=== PATIENT | female | born 1995 | race Caucasian/White ===

== ENCOUNTER → 2018-02-14 13:36 | Outpatient (CLI) | payer MEDICAID, SELFPAY ==
[2018-02-14 17:49] LABS: Chlamydia Trachomatis by PCR Negative (Negative); Neisserai gonorrhoeae by PCR Negative (Negative); Probe Check PASS; Sample Adequacy Control PASS; Specimen Processing Control PASS
== END ==
PROVIDERS: Visit Provider Obstetrics & Gynecology
DX: Z11.3 Encounter for screening for infections with a predominantly sexual mode of transmission (principal); Z34.81 Encounter for supervision of other normal pregnancy, first trimester
CPT/HCPCS: 87491; 87591

== ENCOUNTER 2018-02-26 15:34 | Emergency (ER) | payer MEDICAID, SELFPAY ==
[2018-02-26 15:34] VITALS: BP 126/74; PULSE 80; RESP 16; TEMP 36.4; O2SAT 98; BMI 25.4
--- NOTE | 2018-02-26 15:52 | ED.VISSUMM ---
- ER Visit Summary Date of Service: 02/26/18 Chief Complaint: Bug bites History of Present Illness: The patient is a 22 F presenting with bug bites. She states she slept at a friend's house last night and this morning woke up with bug bites to her right arm and left leg. She said her friend also had bite sheppard. She went to urgent care. She was put on Augmentin. They juarez a line around both areas of redness. She was advised to come to the ED if the redness extended beyond this line. She denies fever or other complaints. Physical Examination: Vitals are stable. Patient is afebrile. Alert no acute distress. HEENT exam is unremarkable. Neck is supple. Lungs are clear and equal bilaterally. Heart is regular rate and rhythm. Extremities bite with surrounding erythema right arm and left leg. No areas of fluctuance or crepitus. Erythema is not circumferential. NVID. Skin is warm and dry. No focal neurologic deficit. Remainder of exam is unremarkable. Emergency Department Course and Treatment: Redness is very slightly beyond the line drawn earlier today. Patient is given Unasyn IV. She is advised to continue her antibiotics as directed. She is given Dr. Freitas vocational placement specialist for no doc for follow-up. Advised return to ED for worsening complaints. Disposition: Discharge home Impression: Cellulitis right arm, left leg This note was generated with [employer] dictation software. It may contain incorrect words, spelling, and punctuation that were not noted in review of the chart prior to signing ED Disposition - Plan for ED Patient: Chief Complaint: Bite Instructions: ED Infec Skin Cellulitis Referrals: Guanaco Freitas MD [STAFF PHYSICIAN] -
--- NOTE | 2018-02-26 15:56 | ED.DCSUM_ITS ---
- ER Visit Summary Date of Service: 02/26/18 Chief Complaint: Bug bites History of Present Illness: The patient is a 22 F presenting with bug bites. She states she slept at a friend's house last night and this morning woke up with bug bites to her right arm and left leg. She said her friend also had bite sheppard. She went to urgent care. She was put on Augmentin. They juarez a line around both areas of redness. She was advised to come to the ED if the redness extended beyond this line. She denies fever or other complaints. Physical Examination: Vitals are stable. Patient is afebrile. Alert no acute distress. HEENT exam is unremarkable. Neck is supple. Lungs are clear and equal bilaterally. Heart is regular rate and rhythm. Extremities bite with surrounding erythema right arm and left leg. No areas of fluctuance or crepitus. Erythema is not circumferential. NVID. Skin is warm and dry. No focal neurologic deficit. Remainder of exam is unremarkable. Emergency Department Course and Treatment: Redness is very slightly beyond the line drawn earlier today. Patient is given Unasyn IV. She is advised to continue her antibiotics as directed. She is given Dr. Freitas construction manager for no doc for follow-up. Advised return to ED for worsening complaints. Disposition: Discharge home Impression: Cellulitis right arm, left leg This note was generated with [employer] dictation software. It may contain incorrect words, spelling, and punctuation that were not noted in review of the chart prior to signing ED Disposition - Plan for ED Patient: Chief Complaint: Bite Instructions: ED Infec Skin Cellulitis Referrals: Guanaco Freitas MD [STAFF PHYSICIAN] -
== END 2018-02-26 17:02 | disposition home or self-care (01) ==
LOC: ED 16:04
PROVIDERS: Emergency Provider Emergency Medicine
DX: L03.113 Cellulitis of right upper limb (principal); L03.116 Cellulitis of left lower limb; Z72.0 Tobacco use; Z79.899 Other long term (current) drug therapy
CPT/HCPCS: 96365; 99283; A4216; J0295

== ENCOUNTER → 2018-02-28 15:12 | Outpatient (CLI) | payer MEDICAID, SELFPAY ==
[2018-02-28 17:14] LABS: Absolute Lymphocyte Count 1.96 X10^3/ul (0.83-4.51); Absolute Neutrophil Count 4.4 X10^3/uL (2.0-7.7); Basophil# 0.02 X10^3/uL; Basophil% 0.3 % (0-1); Eosinophil# 0.18 X10^3/uL; Eosinophils% 2.5 % (0-5); Hematocrit 40.5 % (37-47); Hemoglobin 13.1 g/dl (12.0-15.0); Lymphocyte # 1.96 X10^3/ul (4.0); Lymphocyte % 27.5 % (19-41); Mean Corp Hgb Conc 32.3 g/gl (32-36); Mean Corpuscular Hgb 26.5 pg (27.0-32.0); Mean Corpuscular Volume 81.8 fL (81-99); Mean Platelet Vol. 9.2 fl (6.2-12.0); Monocyte% 8.4 % (0-10); Neutrophil # 4.35 X10^3/uL (2.7-7.7); Neutrophil % 61.2 % (47-70); Platelet Count 292 K/mm3 (150-450); RBC Distribution Width CV 17.5 % (11.6-14.6); RBC Distribution Width SD 52.7 fl (35.1-43.9); Red Blood Count 4.95 M/mm3 (4.2-5.4); White Blood Count 7.1 K/mm3 (4.4-11.0)
[2018-02-28 17:15] LABS: POSITIVE COUNT NO; POSITIVE DIFFERENTIAL NO; POSITIVE MORPHOLOGY NO
[2018-02-28 17:25] LABS: COTININE Drug Screen Positive (<200 ng/mL)
[2018-02-28 17:33] LABS: Color, Urine Yellow (Yellow); Glucose, Dipstick Normal (Normal); Ketone-Dipstick 5 mg/dl (Negative); Leukocyte Esterase-Dipstick 25 /ul (Negative); Nitrite-Dipstick Negative (Negative); Occult Blood-Urine Negative /ul (Negative); Protein-Dipstick Negative (Negative); Specific Gravity, Urine 1.015 (1.002-1.030); Urine Bilirubin Dipstick Negative (Negative); Urine Clarity Sl. Cloudy (Clear); Urine Urobilinogen Normal (Normal)
[2018-02-28 17:42] LABS: Amphetamine Urine VISTA NEGATIVE (<1000 ng/mL); Barbiturate Urine VISTA NEGATIVE (< 200 ng/mL); Benzodiazepine Urine VISTA NEGATIVE (< 200 ng/mL); Cocaine Urine VISTA NEGATIVE (< 300 ng/mL); Ecstacy Urine VISTA NEGATIVE (< 500 ng/mL); Methadone Urine VISTA NEGATIVE (< 300 ng/mL); PCP Urine VISTA NEGATIVE (< 25 ng/mL); THC Urine VISTA POSITIVE (< 50 ng/mL); Vista UDS pH Range 7
[2018-02-28 18:06] LABS: Thyroid Stim Hormone (TSH) 0.11 uIU/mL (0.358-3.74)
[2018-02-28 18:47] LABS: HIV - WCH Non-Reactive (Nonreactive); Rubella IgG 240.3 IU/mL
[2018-03-01 15:03] LABS: Free T3 4.4 pg/mL (2.18-3.98); T4 Free Direct 1.28 ng/dL (0.76-1.46)
[2018-03-03 05:43] LABS: Prenatal RPR NONREACTIVE (NONREACTIVE)
[2018-03-03 13:41] LABS: HEPATITIS B SURFACE AG Negative (Negative); Hep C Antibodies 0.2 s/co ratio (0.0-0.9); V-Zoster IgG (Immunity) 2305 index (Immune >165)
== END ==
PROVIDERS: Visit Provider Obstetrics & Gynecology
DX: Z34.81 Encounter for supervision of other normal pregnancy, first trimester (principal)
CPT/HCPCS: 80307; 81002; 84439; 84443; 84481; 85025; 86703; 86762; 86787; 86803; 87340

== ENCOUNTER 2018-03-19 22:08 | Emergency (ER) | payer MEDICAID, SELFPAY ==
[2018-03-19 22:09] VITALS: BP 134/67; PULSE 95; RESP 15; TEMP 36.6; O2SAT 99; BMI 29.0
[2018-03-19] MEDS: Cephalexin 250 MG Capsule 500 MG PO (22:54)
[2018-03-19 22:55] VITALS: BP 134/67; PULSE 95; RESP 15; O2SAT 99
--- NOTE | 2018-03-19 22:55 | ED.DCSUM_ITS ---
- ER Visit Summary Date of Service: 03/19/18 Chief Complaint: Rash History of Present Illness: The patient is a 22 F presenting for evaluation secondary to a rash. Patient reports that she developed a rash on her left forearm that started over the course last 24 hours. She reports that it has been spreading, it is mildly painful, cavazos, itches, and she now noticed some streaking going up her forearm. She denies any constitutional symptoms such as fevers. Patient reports that she has had prior similar episodes in the past when she spends the night at a friend's house and states that the rashes have required antibiotics. She denies any history of IV drug use. She believes that this is from bug bites patient is 12 weeks and . Physical Examination: Patient is afebrile and nontoxic-appearing. Examination of patient's upper extremity shows a area of erythema over the patient's forearm that measures approximately 8-10 cm and is minimally indurated and there is no evidence of fluctuance. There is the potential for a couple areas where there might be some small bite wounds but this really is not obvious. There is lymphangitic streaking going to approximately 6 cm distal to the patient's elbow. No palpable epitrochlear nodes. Test Results: None indicated Emergency Department Course and Treatment: Patient presented for evaluation secondary to a rash. Patient's rash has evidence of lymphangitic streaking and seems consistent with an infection. Patient will be placed on a course of Keflex. She was given signs and symptoms for which to return, she voiced understanding in her own terms. Patient was given a first dose in the emergency department and was discharged. Disposition: Discharge Impression: 1. Left forearm cellulitis This note was generated with [employer] dictation software. It may contain incorrect words, spelling, and punctuation that were not noted in review of the chart prior to signing ED Disposition - Plan for ED Patient: Disposition: Home or Assisted Living Chief Complaint: Cellulitis Diagnosis: Cellulitis Instructions: ED Infec Skin Cellulitis Prescriptions: Cephalexin [Keflex] 500 mg PO Q6 #40 cap Referrals: Delbert Raza MD [STAFF PHYSICIAN] - As Needed
== END 2018-03-19 23:04 | disposition home or self-care (01) ==
PROVIDERS: Emergency Provider Emergency Medicine
DX: O98.811 Other maternal infectious and parasitic diseases complicating pregnancy, first trimester (principal); L03.114 Cellulitis of left upper limb; O99.331 Smoking (tobacco) complicating pregnancy, first trimester; Z3A.12 12 weeks gestation of pregnancy
CPT/HCPCS: 99283

== ENCOUNTER → 2018-03-28 09:25 | Outpatient (CLI) | payer MEDICAID, SELFPAY ==
[2018-03-28 10:46] LABS: Free T3 2.9 pg/mL (2.18-3.98); T4 Free Direct 0.99 ng/dL (0.76-1.46); Thyroid Stim Hormone (TSH) 0.47 uIU/mL (0.358-3.74)
== END ==
PROVIDERS: Visit Provider Obstetrics & Gynecology
DX: O99.282 Endocrine, nutritional and metabolic diseases complicating pregnancy, second trimester (principal); R94.6 Abnormal results of thyroid function studies; Z3A.00 Weeks of gestation of pregnancy not specified
CPT/HCPCS: 36415; 84439; 84443; 84481

== ENCOUNTER → 2018-07-11 12:58 | Outpatient (CLI) | payer MEDICAID, SELFPAY ==
[2018-07-11 13:48] LABS: Hematocrit 35.2 % (37-47); Hemoglobin 11.8 g/dl (12.0-15.0); Mean Corp Hgb Conc 33.5 g/gl (32-36); Mean Corpuscular Volume 92.4 fL (81-99); Mean Platelet Vol. 9.3 fl (6.2-12.0); Platelet Count 243 K/mm3 (150-450); RBC Distribution Width SD 43.6 fl (35.1-43.9); Red Blood Count 3.81 M/mm3 (4.2-5.4); Scan Indicated on CBC? Y/N NO
[2018-07-11 13:55] LABS: Glucose Challenge Gest 1H 50g 110 mg/dL (70-140)
== END ==
PROVIDERS: Visit Provider Obstetrics & Gynecology
DX: Z34.83 Encounter for supervision of other normal pregnancy, third trimester (principal)
CPT/HCPCS: 36415; 82950; 85027

== ENCOUNTER → 2018-08-31 13:08 | Outpatient (CLI) | payer MEDICAID, SELFPAY | PROVIDERS: Visit Provider Obstetrics & Gynecology | DX: Z36.85 Encounter for antenatal screening for Streptococcus B (principal) | CPT/HCPCS: 87077; 87081; 87186 ==

== ENCOUNTER 2018-09-16 21:25 | Outpatient (CLI) | payer MEDICAID, SELFPAY ==
[2018-09-16 22:08] VITALS: BMI 34.2
[2018-09-16 22:31] LABS: Mucous, Urine 0 SEEN /hpf (<or=2+); Red Blood Cells-Urine 0 SEEN /hpf (0-5)
[2018-09-16 22:32] LABS: Glucose, Dipstick Normal (Normal); Ketone-Dipstick Negative (Negative); Leukocyte Esterase-Dipstick 100 /ul (Negative); Nitrite-Dipstick Negative (Negative); Occult Blood-Urine 10 /ul (Negative); Protein-Dipstick Negative (Negative); Specific Gravity, Urine 1.015 (1.002-1.030); Urine Bilirubin Dipstick Negative (Negative); Urine Urobilinogen Normal (Normal); Urine pH 6.5 (5.0 - 8.0)
[2018-09-16 22:33] LABS: Color, Urine Yellow (Yellow); Urine Clarity Clear (Clear)
[2018-09-16 22:39] LABS: Bacteria 1+ /hpf (None Seen); Squamous Epithelial Cells - UA 0-5 SEEN /hpf (5-10); White Blood Cells 0-5 SEEN /hpf (0-5)
--- NOTE | 2018-09-27 09:20 | OB.TRI.HP_ITS ---
History of Present Illness Was patient seen by the physician?: No Reason For Visit: R/O LABOR Date of Service: 09/16/18 Final HANSEL: 09/26/18 Final HANSEL Source: US <20 weeks Gestational age: 38 Weeks and 4 Days History of Present Illness: 38-week intrauterine presents with contractions. Concerned that she may be in labor. Allergies No Known Allergies Allergy (Verified 09/18/18 07:27) Laboratory Studies: Laboratory Tests 09/16/18 Range/Units 21:45 Urine Color Yellow (Yellow) Urine Clarity Clear (Clear) Urine pH 6.5 (5.0 - 8.0) Ur Specific [place] 1.015 (1.002-1.030) Urine Protein Negative (Negative) mg/dl Urine Glucose (UA) Normal (Normal) mg/dl Urine Ketones Negative (Negative) mg/dl Urine Occult Blood 10 H (Negative) /ul Urine Nitrite Negative (Negative) Urine Bilirubin Negative (Negative) mg/dL Urine Urobilinogen Normal (Normal) mg/dl Ur Leukocyte Esterase 100 H (Negative) /ul Urine RBC 0 SEEN (0-5) /hpf Urine WBC 0-5 SEEN (0-5) /hpf Ur Squamous Epith Cells 0-5 SEEN (5-10) /hpf Urine Bacteria 1+ (None Seen) /hpf Urine Mucus 0 SEEN (<or=2+) /hpf NST - FHR Rate Baby A NST Reactive:: Yes FHR Category:: Category I Impression/Plan 38+ week intrauterine with false labor. Reactive nonstress test. Labor instructions given. Continue routine care.
== END 2018-09-17 00:30 | disposition home or self-care (01) ==
LOC: WPOUT 22:04 → WP 22:04
PROVIDERS: Family Provider Preventive Medicine Occupational Medicine; PCP Preventive Medicine Occupational Medicine; Referring Provider Obstetrics & Gynecology; Visit Provider Obstetrics & Gynecology
DX: O47.1 False labor at or after 37 completed weeks of gestation (principal); Z3A.38 38 weeks gestation of pregnancy
CPT/HCPCS: 59025; 59050; 81001; 87086; 99218; G0378

== ENCOUNTER 2018-09-18 06:55 | Inpatient (IN) | payer MEDICAID, SELFPAY ==
[2018-09-18 07:26] VITALS: BMI 34.5
[2018-09-18 07:34] LABS: Absolute Neutrophil Count 8.2 X10^3/uL (2.0-7.7); Basophil# 0.02 X10^3/uL; Basophil% 0.2 % (0-1); Eosinophils% 0.9 % (0-5); Hematocrit 37.9 % (37-47); Hemoglobin 12.9 g/dl (12.0-15.0); Lymphocyte % 16.3 % (19-41); Mean Corpuscular Hgb 30.8 pg (27.0-32.0); Mean Corpuscular Volume 90.5 fL (81-99); Mean Platelet Vol. 9.9 fl (6.2-12.0); Monocyte# 0.91 X10^3/uL; Monocyte% 8.2 % (0-10); Neutrophil # 8.21 X10^3/uL (2.7-7.7); Neutrophil % 74.2 % (47-70); Platelet Count 244 K/mm3 (150-450); RBC Distribution Width CV 13.3 % (11.6-14.6); RBC Distribution Width SD 43.2 fl (35.1-43.9); Red Blood Count 4.19 M/mm3 (4.2-5.4); White Blood Count 11.1 K/mm3 (4.4-11.0)
[2018-09-18 07:37] LABS: POSITIVE COUNT NO; POSITIVE DIFFERENTIAL NO; POSITIVE MORPHOLOGY NO
[2018-09-18 07:50] LABS: ROM Internal Control Test YES-OK TO RESULT pt. (Internal QC); ROM Patient Test Negative (Negative)
[2018-09-18] MEDS: Lactated Ringers 1,000 ML 50 ML IV (08:00)
[2018-09-18] MEDS: fentaNYL-bupivacaine (epidural) 100 ML BAG EPIDURAL (08:41)
--- NOTE | 2018-09-18 10:18 | PCM.PN.BLA ---
Progress Note C/O much pressure at vagina. Epidural otherwise OK AVSS EFM 110-120s with accels to 170s. intermittent tracing. Hard to monitor FHR but category I tracing. UCs q 2-3 mins (intermittent tracing) but feeling these as vaginal pressure CX: BBOW AROM copious clear fluid. COMPLETE +1 A/P: 38 1/7 wk labor. C and P Anticipate .
[2018-09-18] MEDS: Oxytocin 30 units/NS 500 ml 30 UNITS/500 ML IV.SOLN 334 UNITS IV (10:35)
--- NOTE | 2018-09-18 10:41 | PCM.DCVAG ---
Discharge Diet: No Restrictions Discharge Activity: May Shower, May Take a Tub Bath May resume sexual activity in: 4-6 weeks Additional Activity Instructions:: Nothing in the vagina for 4-6 weeks. You may return to work/school in 6 weeks. Additional Instructions: If you experience any of the following, contact your healthcare provider. Bleeding that soaks a pad every hour for 2 hours Fever 100.4 or higher Unrelieved incision or abdominal pain Swelling, redness, discharge or bleeding from your incision or episiotomy site Your incision begins to separate Problems urinating (including inability to urinate or burning while urinating). Visual changes Severe headache Flu-like symptoms Pain or redness in one of both of your breasts Pain, warmth, tenderness or swelling in your legs, especially the calf area Frequent nausea and vomiting Symptoms of depression or anxiety If you experience any of the following, call 911 or go to the nearest Emergency Room. Chest pain Problems breathing Seizure activity Partial or complete paralysis of a body part, slurred speech, weakness or drooping of the face, or a sudden inability to walk or hold your balance Allergies/Adverse Reactions: Allergies No Known Allergies Allergy (Verified 09/18/18 07:27) Medications to take at Discharge Pnv No.95/Ferrous Fum/Folic AC [ Multivitamin Tablet] 1 each PO DAILY 02/26/18 Sertraline HCl [Zoloft] 100 mg PO DAILY 09/16/18 Zolpidem Tartrate [Ambien] 1 tab PO QHS PRN 09/16/18 Please Follow Up With: Delbert Raza MD - [phone] When: Call to make an appointment with your doctor in 6 weeks. If you had elevated Blood Pressure or 4th degree laceration you will need to be seen in 2 weeks. Primary Care Physician: Marcelino Palumbo DO [Primary Care Provider] - Test Results: Test results from this visit will be discussed in further detail at your follow-up appointment, if applicable. Proposed Discharge Date: 09/20/18
--- NOTE | 2018-09-18 10:42 | DCINST_ITS ---
Discharge Diet: No Restrictions Discharge Activity: May Shower, May Take a Tub Bath May resume sexual activity in: 4-6 weeks Additional Activity Instructions:: Nothing in the vagina for 4-6 weeks. You may return to work/school in 6 weeks. Additional Instructions: If you experience any of the following, contact your healthcare provider. * Bleeding that soaks a pad every hour for 2 hours * Fever 100.4 or higher * Unrelieved incision or abdominal pain * Swelling, redness, discharge or bleeding from your incision or episiotomy site * Your incision begins to separate * Problems urinating (including inability to urinate or burning while u rinating). * Visual changes * Severe headache * Flu-like symptoms * Pain or redness in one of both of your breasts * Pain, warmth, tenderness or swelling in your legs, especially the calf area * Frequent nausea and vomiting * Symptoms of depression or anxiety If you experience any of the following, call 911 or go to the nearest Emergency Room. * Chest pain * Problems breathing * Seizure activity * Partial or complete paralysis of a body part, slurred speech, weakness or drooping of the face, or a sudden inability to walk or hold your balance Allergies/Adverse Reactions: Allergies No Known Allergies Allergy (Verified 09/18/18 07:27) Medications to take at Discharge Pnv No.95/Ferrous Fum/Folic AC [ Multivitamin Tablet] 1 each PO DAILY 02/26/18 Sertraline HCl [Zoloft] 100 mg PO DAILY 09/16/18 Zolpidem Tartrate [Ambien] 1 tab PO QHS PRN 09/16/18 Please Follow Up With: Delbert Raza MD - [phone] When: Call to make an appointment with your doctor in 6 weeks. If you had elevated Blood Pressure or 4th degree laceration you will need to be seen in 2 weeks. Primary Care Physician: Marcelino Palumbo DO [Primary Care Provider] - Test Results: Test results from this visit will be discussed in further detail at your follow- up appointment, if applicable. Proposed Discharge Date: 09/20/18
--- NOTE | 2018-09-18 10:42 | PCM.OPRPT ---
Vaginal Delivery Maternal Presentation: Active Labor 38 6/7 wk labor Amniotic Membrane Rupture Type: Artificial Rupture of Membrane time: 1008 Amniotic Fluid Description: Clear Final HANSEL: 09/26/18 Gestational age: 38 Weeks and 6 Days Date of Procedure: 09/18/18 Pre-Operative Diagnosis: 38 6/7 wk labor Post-Operative Diagnosis: same Surgery/ Procedure Performed: Spontaneous Vaginal Delivery Anesthesiologist: Lennox Burgos Type of Anesthesia: Epidural Description of Procedure: of a fink viable male over intact perineum to laceration. Head delivered JARVIS. OP and nares bulb suctioned on perineum. Shoulders delivered easily. Loose body cord x one reduced at delivery. Infant to maternal abdomen. Delayed cord clamping employed. Cord then clamped times two and cut. Routine cord gases collected and cord blood for typing. PP exam; 2nd deg posterior vaginal laceration to perineum. Repaired under epidural and 10 cc 1% lidocaine local to hemostatic, intact with 3-0 Vicryl No other lacerations noted. Placenta delivered by spont expulsion, expression. 3V cord, normal appearing, intact with trailing [id number] Pt and tolerated delivery well. To recovery, stable condition Ray mathieu counts correct x two All sharps discarded in sharps container EBL 250 cc Presentation: Vertex, JARVIS Placental Delivery Description: Spontaneous, Expressed Placenta Disposition: [facility] Cord Vessel Description: 3 Vessels Cord Gases drawn per routine: VBG Cord Entanglement: None Drain: Cee to straight drain Estimated Blood Loss: 250 Infant A gender: Male (1 minute): 8 (5 minute): 9 Episiotomy Description: None Laceration: Midline, Vaginal Extension/lac, 2nd degree Medications given after delivery: IV Pitocin Complications: None
[2018-09-18] MEDS: Oxytocin 30 units/NS 500 ml 30 UNITS/500 ML IV.SOLN 167 UNITS IV (11:05)
[2018-09-18] MEDS: 0.9% Saline Lock 10 ML Syringe IV (12:14)
[2018-09-18] MEDS: Sertraline 100 MG Tablet PO (12:14)
--- NOTE | 2018-09-18 12:44 | NURSING ---
epidural catheter removed and blue tip intact. no bleeding noted. pt tolerated well.
[2018-09-18 15:20] VITALS: BP 127/80; PULSE 96; RESP 16; TEMP 37.1; O2SAT 100
[2018-09-18] MEDS: Ibuprofen 600 MG Tablet PO (20:12)
[2018-09-18 20:14] VITALS: BP 135/83; PULSE 105; RESP 18; TEMP 36.8; O2SAT 95
[2018-09-18 23:55] VITALS: BP 119/71; PULSE 77; RESP 16; TEMP 36.4; O2SAT 98
[2018-09-19 04:00] VITALS: BP 101/51; PULSE 83; RESP 16; TEMP 36.6
[2018-09-19 07:46] VITALS: BP 104/71; PULSE 67; RESP 16; TEMP 36.4
--- NOTE | 2018-09-19 08:17 | PN.OBGYN_ITS ---
Subjective: PPD#1 Doing well. Minimal pain, mostly at R breast with nursing. Baby is very sleepy, hard to wake for nursing. - Physical Exam General: Alert, Oriented x3, Cooperative, No apparent distress HEENT: Atraumatic Neck: Supple Abdomen: Soft - Fundus firm NT at umbilicus Neurological: Cranial nerves II-XII grossly intact Psych/Mental Status: Normal Affect Vital Signs Temp Pulse Resp BP Pulse Ox 97.6 F L 67 16 104/71 98 09/19/18 07:46 09/19/18 07:46 09/19/18 07:46 09/19/18 07:46 09/18/18 23:55 Oxygen Delivery Method Room Air Weight: 106.141 kg Body Mass Index (BMI) 34.5 Intake and Output for Last 24 Hours 09/17/18 09/18/18 09/19/18 23:59 23:59 23:59 Intake Total 1191 / 1191 Output Total 900 / 900 Balance 291 / 291 Laboratory Tests Past 24 Hrs 09/18/18 07:05 Blood Type O POSITIVE Antibody Screen NEGATIVE Medical Necessity - Tobacco Use Smoking Status: Former smoker Assessment/Plan PPD#1 Stable . continue care. Assist prn with nursing. shared services and outsourcing manager consult 2/2 drug use in .
[2018-09-19] MEDS: Sertraline 100 MG Tablet PO (11:33)
[2018-09-19] MEDS: Ibuprofen 600 MG Tablet PO (12:14)
[2018-09-19 14:45] VITALS: BP 115/56; PULSE 77; RESP 16; TEMP 36.4
--- NOTE | 2018-09-19 16:22 | CASEMGMT ---
Social Work Labor and Delivery Consult received and noted. Chart has been reviewed. Plan to meet with patient/mother of baby on 09.20.2018, likely in the morning hours, for assessment, consult, and provision of resources as indicated. -DANIKA Ashton, MANUFACTURING PROJECT MANAGER
[2018-09-19 20:26] VITALS: BP 120/76; PULSE 80; RESP 16; TEMP 36.6; O2SAT 97
[2018-09-20 02:08] VITALS: BP 128/78; PULSE 75; RESP 16; TEMP 36.9; O2SAT 97
[2018-09-20 08:09] VITALS: BP 116/74; PULSE 70; RESP 16; TEMP 36.6; O2SAT 100
--- NOTE | 2018-09-20 08:31 | PCM.PN.OB ---
Subjective: No complaints. Bleeding light. Breast feeding. Objective: Afeb VSS - Physical Exam General: Alert, Oriented x3, Cooperative, No apparent distress Lungs: Clear to auscultation, Normal air movement Cardiovascular: Regular rate, Regular Rhythm Abdomen: Soft, Non Tender, Non-Distended Extremities: No edema Skin: No rashes Neurological: Neuro grossly intact Psych/Mental Status: Normal Affect Comment: Lochia light Vital Signs Temp Pulse Resp BP Pulse Ox 98.4 F 75 16 128/78 H 97 09/20/18 02:08 09/20/18 02:08 09/20/18 02:08 09/20/18 02:08 09/20/18 02:08 Oxygen Delivery Method Room Air Weight: 234 lb Body Mass Index (BMI) 34.5 Intake and Output for Last 24 Hours 09/18/18 09/19/18 09/20/18 23:59 23:59 23:59 Intake Total 1191 / 1191 Output Total 900 / 900 Balance 291 / 291 Medical Necessity - Tobacco Use Smoking Status: Former smoker Assessment/Plan Doing well on PP day#2. Cleared for discharge home today. Home going instructions and warnings given.
--- NOTE | 2018-09-20 08:34 | PCM.DC.SUM ---
Discharge Date and Diagnosis Date of Admission: 08/21/18 Date of Discharge: 09/20/18 - Primary Discharge Diagnosis s/p Hospital Course and Treatment Operations: None Procedures: - - Epidural, Summary of Care Provided: The patient is a 23 year old F admitted in active labor. Progressed to FD then pushed to deliver a live without complication. Post course unremarkable. Discharged home on PP day#2. - Physical Exam Vital Signs Temp Pulse Resp BP Pulse Ox 98.4 F 75 16 128/78 H 97 09/20/18 02:08 09/20/18 02:08 09/20/18 02:08 09/20/18 02:08 09/20/18 02:08 Oxygen Delivery Method Room Air Weight: 234 lb Body Mass Index (BMI) 34.5 Intake and Output for Last 24 Hours 09/18/18 09/19/18 09/20/18 23:59 23:59 23:59 Intake Total 1191 / 1191 Output Total 900 / 900 Balance 291 / 291 Discharge Diet: No Restrictions Discharge Activity: May Shower, May Take a Tub Bath May resume sexual activity in: 4-6 weeks Additional Activity Instructions:: Nothing in the vagina for 4-6 weeks. You may return to work/school in 6 weeks. Call your doctor if your incision/area has: Sudden Increased Bleeding, Foul Smelling Discharge Call your doctor if you observe: Fever of 101 or Higher, Inability to urinate, Inability to have a bowel movement, Using more than one pad per hour, Shortness of breath, Chest pain, Calf discomfort, Uncontrolled pain Cleanse incision/area with: Soap & Water Home Medications: Medications to take at Discharge Pnv No.95/Ferrous Fum/Folic AC [ Multivitamin Tablet] 1 each PO DAILY 02/26/18 Sertraline HCl [Zoloft] 100 mg PO DAILY 09/16/18 Zolpidem Tartrate [Ambien] 1 tab PO QHS PRN 09/16/18 Ibuprofen 600 mg PO 4X/DAY #30 tab 09/20/18 Following Prescrptions Were Given to Patient: Ibuprofen 600 mg PO 4X/DAY #30 tab Primary Care Physician: Marcelino Palumbo DO [Primary Care Provider] - Please Follow Up With: Delbert Raza MD - [phone] When: 6 weeks Disposition: Home Minutes spent on discharge:: 15 Patient Condition:: Good Medical Necessity - Tobacco Use Smoking Status: Former smoker Meaningful Use Info Meaningful Use Diagnoses (Choose all that apply): None applicable
[2018-09-20] MEDS: Sertraline 100 MG Tablet PO (12:20)
== END 2018-09-20 12:40 | disposition home or self-care (01) | DRG 560 ==
PROVIDERS: Obstetrics & Gynecology; Admitting Provider Obstetrics & Gynecology; Family Provider Preventive Medicine Occupational Medicine; PCP Preventive Medicine Occupational Medicine; Referring Provider Obstetrics & Gynecology; Visit Provider Obstetrics & Gynecology
DX: O99.824 Streptococcus B carrier state complicating childbirth (principal); O69.81X0 Labor and delivery complicated by cord around neck, without compression, not applicable or unspecified; O70.1 Second degree perineal laceration during delivery; Z87.891 Personal history of nicotine dependence; Z3A.38 38 weeks gestation of pregnancy; Z37.0 Single live birth
CPT/HCPCS: 59025; 59050; 81001; 84112; 85025; 86850; 86900; 87086; 87088; 99218; J7120; A4216; G0378

== ENCOUNTER 2019-03-09 10:16 | Emergency (ER) | payer MEDICAID, SELFPAY ==
[2019-03-09 10:16] VITALS: BP 135/79; PULSE 76; RESP 19; TEMP 36.6; O2SAT 97; BMI 34.0
--- NOTE | 2019-03-09 10:54 | ED.VISSUMM ---
- ER Visit Summary Date of Service: 03/09/19 Chief Complaint: Abdominal pain History of Present Illness: The patient is a 23 F with abdominal pain for 2 weeks. The pain migrates. Sometimes it is over her lower abdomen, and sometimes it is over her bilateral flanks. Nothing seems to bring it on or make it worse. She noted that she had some dizziness, dark urine, nausea, and vomiting. She went to urgent care yesterday and was diagnosed with a UTI. She was treated with 1 dose of Macrobid so far. She presents today for continued pain with dizziness, nausea, and vomiting. Physical Examination: Patient is afebrile with completely normal vital signs. She appears nontoxic and in no acute distress. Heart regular. Lungs clear. Abdomen soft, nontender, nondistended, and her back is nontender. Test Results: Labs, urine, test pending. Emergency Department Course and Treatment: Patient treated with fluids, Zofran, and Toradol while awaiting results. Urinalysis unremarkable. test negative. CBC normal. Metabolic panel indicates a hepatitis. Total bilirubin is 2.7, alkaline phosphatase 683, ALT 396, AST 196. Lipase normal. Subsequent right upper quadrant ultrasound, acute hepatitis panel, and INR were ordered. Patient was notified that her liver enzymes are elevated and that we are checking further testing. She is comfortable and had no new symptoms. INR normal. Ultrasound showed hepatomegaly. Hepatitis panel is pending. I am not sure what is causing her symptoms. We will give her viral hepatitis precautions until her hepatitis panel is back. She has private insurance and will be referred to Dr. Baltazar for follow-up. She will monitor for signs of worsening liver function. She was given precautions. She will follow-up with GI or PCP. If she has trouble following up or has any new or worsening issues, she was advised to return to the ED right away. Treatment Plan: As above Disposition: Discharge Impression: 1. Acute hepatitis This note was generated with [employer] dictation software. It may contain incorrect words, spelling, and punctuation that were not noted in review of the chart prior to signing ED Disposition - Plan for ED Patient: Referrals: Marcelino Palumbo DO [Primary Care Provider] -
[2019-03-09] MEDS: Ketorolac 30 MG/ML Syringe IV (11:14)
[2019-03-09] MEDS: Ondansetron 4 MG/2 ML Vial IV (11:14)
[2019-03-09] MEDS: 0.9% Normal Saline 1,000 ML 1000 ML IV (11:14)
[2019-03-09 11:24] LABS: Mucous, Urine 0 SEEN /hpf (<or=2+); Red Blood Cells-Urine 0 SEEN /hpf (0-5)
[2019-03-09 11:31] LABS: Color, Urine Yellow (Yellow); Glucose, Dipstick Normal (Normal); Ketone-Dipstick 5 mg/dl (Negative); Leukocyte Esterase-Dipstick 25 /ul (Negative); Nitrite-Dipstick Negative (Negative); Occult Blood-Urine Negative /ul (Negative); Protein-Dipstick 15 mg/dl (Negative); Urine Clarity Sl. Cloudy (Clear); Urine Urobilinogen 4 mg/dl (Normal)
[2019-03-09 11:32] LABS: Urine Bilirubin Dipstick 3 mg/dL (Negative)
[2019-03-09 11:33] LABS: Internal QC Validated? YES +Cl - CLEAR BKGD; Pregnancy, Urine Negative Negative
[2019-03-09 11:38] LABS: Bacteria 1+ /hpf (None Seen); Squamous Epithelial Cells - UA 0-5 SEEN /hpf (5-10); White Blood Cells 0-5 SEEN /hpf (0-5)
[2019-03-09 11:39] LABS: Absolute Lymphocyte Count 6.55 X10^3/uL (0.83-4.51); Absolute Neutrophil Count 1.8 X10^3/uL (2.0-7.7); Basophil# 0.04 X10^3/uL; Basophil% 0.4 % (0-1); Eosinophil# 0.04 X10^3/uL; Eosinophils% 0.4 % (0-5); Hematocrit 40.7 % (37-47); Hemoglobin 13.5 g/dL (12.0-15.0); Lymphocyte # 6.55 X10^3/ul (4.0); Lymphocyte % 62.5 % (19-41); Mean Corp Hgb Conc 33.2 g/dL (32-36); Mean Corpuscular Hgb 28.5 pg (27.0-32.0); Mean Corpuscular Volume 85.9 fL (81-99); Mean Platelet Vol. 10.6 fl (6.2-12.0); Monocyte# 2.01 X10^3/uL; Monocyte% 19.2 % (0-10); NRBC Flagged by Analyzer 0 % (0-5); Neutrophil # 1.75 X10^3/uL (2.7-7.7); Neutrophil % 16.6 % (47-70); POSITIVE DIFFERENTIAL YES; POSITIVE MORPHOLOGY YES; Platelet Count 150 K/mm3 (150-450); RBC Distribution Width CV 14.4 % (11.6-14.6); RBC Distribution Width SD 45.1 fl (35.1-43.9); Red Blood Count 4.74 M/mm3 (4.2-5.4); White Blood Count 10.5 K/mm3 (4.4-11.0)
[2019-03-09 11:42] LABS: ALB/GLOB Ratio 0.8 RATIO (0.9-2.4); AST(SGOT) 196 U/L (15-37); Alanine Aminotransfer ALT/SGPT 396 U/L (13-56); Albumin, Serum 3.2 g/dL (3.2-5.0); Alkaline Phosphatase 683 U/L (45-117); Anion Gap 6 (5-15); BUN 5 mg/dL (7-18); BUN/Creat Ratio 6.9 RATIO (10-20); Calcium,Total 8.3 mg/dL (8.5-10.1); Chloride 106 mmol/L (98-107); Creatinine, Serum 0.73 mg/dL (0.55-1.02); EST Glomerular Filtration Rate 107 mL/min (>60); Est Glom Filt Rate - Afr Amer 129 mL/min (>60); Globulin 3.8 g/dL (2.2-4.2); Glucose 112 mg/dL (74-106); Lipase 140 U/L (73-393); Potassium 3.5 mmol/L (3.5-5.1); Sodium Level 139 mmol/L (136-145)
[2019-03-09 12:00] VITALS: BP 120/73; PULSE 58; RESP 16; TEMP 36.4; O2SAT 97
[2019-03-09 12:14] LABS: Platelet Estimate ADEQUATE (ADEQ); Reactive Lymphocyte 2+
[2019-03-09 12:15] LABS: Differential Indicated SCAN CRITERIA MET
--- NOTE | 2019-03-09 12:39 | US_ITS ---
STUDY: ABDOMINAL ULTRASOUND - RIGHT UPPER QUADRANT REASON FOR VISIT: Female, 23 years old hepatitis. Abnormal liver function tests. TECHNIQUE: Ultrasound evaluation of the right upper quadrant was performed with real-time and static calvin-scale imaging. TECHNICAL QUALITY: Adequate. COMPARISON: None. FINDINGS: Liver: The liver is slightly enlarged and measures 18.3 cm. There is normal echogenicity of the liver. The bile ducts are within normal limits. There is hepatic color flow. The direction of portal flow is hepatopetal. There is no demonstrated mass lesion. Gallbladder: Normal distended gallbladder. The gallbladder wall measures 2.6 mm. There is a negative sonographic Jiang's sign. There is no pericholecystic fluid. There are no gallstones. Common Bile Duct (C.B.D.): The common bile duct measures 5.7 mm. Pancreas: Normal size of the head, body and tail of the pancreas. There is normal echogenicity of the pancreas. There is no demonstrated pancreatic mass or cyst. Right Kidney: Normal size of the right kidney. The right kidney measures 11.8 cm x 4.6 x 4.7 cm. Normal renal cortex. The right cortex measures 2.1 cm. There is no demonstrated renal mass or cyst. There is no right hydronephrosis. US/Gallbladder IMPRESSION: Mild degree of hepatomegaly. Electronically Signed: Garrison Figueroa, at 13:53 EDT , Service support ,
[2019-03-09 13:28] LABS: Prothrombin Time (Protime)PT. 12.5 SECONDS (11.7-14.9)
--- NOTE | 2019-03-09 14:14 | ED.DEP ---
ED Disposition - Plan for ED Patient: Instructions: HEPATITIS, Cause Unknown (test pending) Prescriptions: Ondansetron [Zofran Odt] 4 mg PO Q8H PRN PRN #10 tab PRN Reason: Nausea Prescription Printed Referrals: Dom Baltazar MD [NON-STAFF] -
[2019-03-09 14:31] VITALS: BP 120/75; PULSE 59; RESP 16; TEMP 36.6; O2SAT 98
[2019-03-10 05:06] LABS: HEPATITIS B SURFACE AG Negative (Negative); Hepatitis A IgM Antibody Negative (Negative); Hepatitis B Core AB IgM Negative (Negative)
[2019-03-10 15:33] LABS: Hep C Antibodies 0.3 s/co ratio (0.0-0.9)
[2019-03-12 12:04] LABS: Pathologist Review Reviewed
== END 2019-03-09 14:34 | disposition home or self-care (01) ==
LOC: ED 11:18
PROVIDERS: Emergency Provider Emergency Medicine; Family Provider Preventive Medicine Occupational Medicine; PCP Preventive Medicine Occupational Medicine
DX: B17.9 Acute viral hepatitis, unspecified (principal); R42 Dizziness and giddiness; R11.2 Nausea with vomiting, unspecified; Z72.0 Tobacco use; Z79.899 Other long term (current) drug therapy
CPT/HCPCS: 76705; 80053; 80074; 81001; 81025; 83690; 85025; 85610; 87086; 87088; 96361; 96374; 96375; 99283; J7030; A4216; J2405

== ENCOUNTER 2019-10-24 19:42 | Emergency (ER) | payer MEDICAID, SELFPAY ==
[2019-10-24 19:43] VITALS: BP 150/97; PULSE 66; RESP 17; TEMP 36.9; O2SAT 98; BMI 34.8
--- NOTE | 2019-10-24 20:10 | CT_ITS ---
HISTORY: Sudden onset of headache for 2 days. Elevated blood pressure. Technique: Prior to the administration of intravenous contrast contiguous images were obtained through the brain. 2-D reformats were performed. Following the uneventful administration of 100 mL of Isovue-370 contiguous helical images were obtained from the aortic arch through the brain. 2-D and 3-D reformats were performed on the acquisition scanner. 947 images. No comparison imaging of any kind. Findings: Noncontrast CT scan of brain: Brain volume is normal. Ragland-white differentiation is preserved. No hydrocephalus. No acute intracranial hemorrhage. No acute ischemia. Visualized portions of the paranasal sinuses are free of disease. 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 This is fairly symmetric bilaterally. CT angiogram of the neck: Visualized portions of the lung apices are clear. The thyroid, submandibular, parotic glands are normal. Within the cervical spine bony alignment is normal. Disc height and vertebral body height are normal. Facets are well aligned. Dental caries is poor with erosion of enamel in many of the teeth, specifically within the maxilla. Flow is present within the aortic arch, the brachiocephalic, bilateral common carotid, bilateral subclavian, and bilateral vertebral arteries. Flow remains within both vertebral arteries as they ascend within the respective vertebral foramina. Flow is normal within bilateral CCA, ICA, and ECA. Both ICAs remain patent into the skull. CT angiogram of the brain: Flow is present within bilateral intracranial ICA, SAMI, MCA, BARREL LATHE OPERATOR, vertebral arteries, superior cerebellar arteries, the basilar artery. Bilateral posterior communicating arteries provide the preponderance of flow to the posterior circulation. The anterior communicating artery is suspected to be patent. I perceived no aneurysm, stenosis, occlusion, dissection. CT/CTA Head AND Neck W/ Contrast IMPRESSION: Normal. Individualized dose optimization techniques were used for this CT. at 2109 Reported and signed by: Rosas Ventura MD Electronically Signed: Rosas Ventura MD at 21:08 EDT Tel , Service support ,
[2019-10-24] MEDS: DiphenhydrAMINE 50 MG/ML Syringe 25 MG IV (20:22)
[2019-10-24] MEDS: Metoclopramide 10 MG/2 ML Vial 5 MG IV (20:22)
--- NOTE | 2019-10-24 21:10 | ED.DCSUM_ITS ---
- ER Visit Summary Date of Service: 10/24/19 Chief Complaint: Headache History of Present Illness: The patient is a 24 F presenting with headache. This started 2 days ago. Headache was gradual in onset and progressively worsening. She tried ibuprofen and Benadryl which helped at home. She states the headache then returned. She denies numbness or weakness. Denies trauma. No history of previous headaches. Denies fever or other complaints. Physical Examination: Vitals are stable. Patient is afebrile. Alert no acute distress. HEENT exam is unremarkable. Neck is supple. No meningismus Lungs are clear and equal bilaterally. Heart is regular rate and rhythm. Abdomen is soft nontender nondistended. Extremities are unremarkable. Skin is warm and dry. No focal neurologic deficit. Remainder of exam is unremarkable. Emergency Department Course and Treatment: Patient was given Reglan, Benadryl IV. CTA head and neck normal. Patient feels improved on reevaluation. Advised to follow-up with primary care physician. Advised return to the ED for worsening complaints. Disposition: Discharge home Impression: Headache This note was generated with [employer] dictation software. It may contain incorrect words, spelling, and punctuation that were not noted in review of the chart prior to signing ED Disposition - Plan for ED Patient: Instructions: ED Headache Unspecified Referrals: Marcelino Palumbo DO [Primary Care Provider] -
--- NOTE | 2019-10-24 21:55 | ED.DEP ---
ED Disposition - Plan for ED Patient: Instructions: ED Headache Unspecified Referrals: Marcelino Palumbo DO [Primary Care Provider] -
[2019-10-24 22:06] VITALS: PULSE 61; RESP 14; O2SAT 98
== END 2019-10-24 22:07 | disposition home or self-care (01) ==
LOC: ED 20:44
PROVIDERS: Emergency Provider Emergency Medicine; PCP Preventive Medicine Occupational Medicine
DX: R51 Headache (principal); Z72.0 Tobacco use; Z79.899 Other long term (current) drug therapy
CPT/HCPCS: 70496; 70498; 96374; 96375; 99283; Q9967; A4216

== ENCOUNTER 2021-10-07 05:55 | Emergency (ER) | payer OTHER, MEDICAID, SELFPAY ==
[2021-10-07 05:56] VITALS: BP 132/80; PULSE 89; RESP 18; TEMP 36.6; O2SAT 98; BMI 31.7
--- NOTE | 2021-10-07 06:05 | RAD_ITS ---
STUDY: X-RAY - LUMBAR SPINE REASON FOR EXAM: Female, 26 years old. pain TECHNIQUE: 3 view(s) of the lumbar spine were obtained. COMPARISON: None FINDINGS: Normal lumbar lordosis. There is no substantial scoliosis. There is a normal alignment of the vertebrae. Normal vertebral bodies and endplates. Normal disc space heights. The soft tissue structures are unremarkable. RAD/Lumbar Spine 2 or 3 Views IMPRESSION: No acute fracture or subluxation. Electronically Signed: Vernon Rivera MD at 6:53 EDT ,
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
[2021-10-07] MEDS: HYDROcodone Bitartrate/Apap 5/325 Tablet PO (06:19)
[2021-10-07] MEDS: Ketorolac 60 MG/2 ML Vial IM (06:19)
[2021-10-07 07:11] VITALS: BP 132/80; PULSE 89; RESP 18; O2SAT 98
== END 2021-10-07 07:29 | disposition home or self-care (01) ==
LOC: ED 06:55
PROVIDERS: Emergency Provider Emergency Medicine; Visit Provider Emergency Medicine
DX: S30.0XXA Contusion of lower back and pelvis, initial encounter (principal); W01.10XA Fall on same level from slipping, tripping and stumbling with subsequent striking against unspecified object, initial encounter; Y92.814 Boat as the place of occurrence of the external cause; U07.1 COVID-19; F17.210 Nicotine dependence, cigarettes, uncomplicated
CPT/HCPCS: 72100; 87428; 96372; 99282

== ENCOUNTER 2023-02-09 14:43 | Emergency (ER) | payer OTHER, SELFPAY ==
[2023-02-09 14:44] VITALS: BP 117/57; PULSE 99; RESP 18; TEMP 36.1; O2SAT 99; BMI 25.4
--- NOTE | 2023-02-09 14:56 | EX.ED.DYSGE1 ---
HPI History of Present Illness Chief Complaint: Seizure Detail of Chief Complaint: I feel out of it. No seizure activity. Informant: patient Onset/Context/Timing Onset: Month(s) Context: Gradual Onset Timing: Continuous Current Severity: Mild Narrative Narrative: 27-year-old female history of anxiety. Smokes cigarettes, drinks alcohol and uses marijuana and last use was this morning. States that she is just felt out of it for 2 to 3 months. Feels like she is going to have a seizure. States she is never had a seizure. She has had no loss of conscious. There is no family history. She has had no recent illness. No recent head injury. She denies any other drug use. Prior similar symptoms: Yes Recent Illness/Hospitalization: No PFSH PFSH Medical History no medical history Home Medications hydrocodone-acetaminophen 5-325mg 5mg-325mg 1 tab PO Q6H PRN PRN Pain 3 days #12 TABLETS 10/07/21 [Rx Last Taken Unknown] Allergy/AdvReac Type Severity Reaction Status Date / Time No Known Allergies Allergy Verified 10/24/19 19:42 Social History Smoking Status: Current every day smoker tobacco type: cigarettes substance use type: does not use ROS ROS ED ROS Narrative Denies recent illness. Review of Systems ROS Unobtainable: Denies due to encephalopathy Constitutional Constitutional ED: Denies chills or fever(s) Eyes Eyes: Denies blurry vision ENT ENT ED: Denies ear pain Cardiovascular Cardiovascular: Denies chest pain Respiratory/Chest Respiratory/Chest: Denies cough or dyspnea Gastrointestinal Gastrointestinal: Denies abdominal pain, constipation, diarrhea, melena, nausea or vomiting Genitourinary Genitourinary ED: Denies dysuria or hematuria Musculoskeletal Musculoskeletal: Denies arthralgias or back pain Integumentary Denies abscess or Abrasions Neurologic Neurologic: Denies headache(s) Psychiatric Psychiatric: Reports anxiety Endocrine Endocrinology: Denies cold intolerance or heat intolerance Hematologic/Lymphatic Hematologic/Lymphatic: Reports none Allergic/Immunologic Allergic/Immunologic ED: Denies mouth swelling, tongue swelling or urticaria EXAM Physical Exam Narrative Exam Narrative: Well-appearing 27-year-old female. Vital signs stable afebrile. She does not look septic or toxic. She is extremely anxious and at times tearful she is very upset that her left upper tooth is chipped which she had fixed 2 years ago. She is in no medical distress. No one else present in the room other than myself and the nurse. H EENT exam left upper tooth is chipped. Moist mucous membranes. Tongue is normal. No bite sheppard. Pupils round reactive light. No trauma to her face or scalp. Neck nontender. No lymphadenopathy. Full range of motion. Back nontender. Lungs clear equal symmetrical bilaterally. Heart regular rhythm rate about 95 no murmur. Chest wall and ribs nontender. Abdomen soft nontender. Moving all 4 extremities. Nontender. No edema. Skin no rashes. No petechiae or purpura. Neurologically she is awake and alert with no focal motor deficits. Const Vital Signs: 02/09/23 14:44 Temperature 96.9 F L Temperature Source Temporal Pulse Rate 99 Respiratory Rate 18 Blood Pressure 117/57 L Blood Pressure Mean 77 Pulse Ox 99 Oxygen Delivery Method Room Air Positive well nourished and well developed; Negative for cachectic, contractures or unkempt General Appearance ED: well developed and NAD; Negative for unkempt, cachectic, contractures, cyanotic, diaphoretic or pallor Nutritional Appearance: Negative for cachectic HEENT Reports moist mucous membranes Negative for trauma or tenderness Eyes PERRL and EOMs intact bilaterally General Eye ED: Negative for pale conjunctiva, scleral icterus or other Neck no lymphadenopathy, supple and no JVD General: Negative for tenderness Lymph Lymphatic: Negative for other Chest Wall inspection of chest normal and palpation of chest normal Chest: Negative for other Resp normal respiratory effort and clear to auscultation bilaterally Effort and Inspection: Negative for retractions or pain with movement Auscultation: Negative for rales, rhonchi or wheezes Cardio regular rate, regular rhythm, S1 normal heart sound, S2 normal heart sound and no murmurs Rate: Negative for bradycardia or tachycardic Rhythm: Negative for abnormal rhythm GI normal to inspection, nondistended, normoactive bowel sounds, non-tender, non-distended and no masses Inspection: Negative for abdominal distention Auscultation: normoactive bowel sounds Palpation: soft; Negative for tender or guarding Back/Spine no CVA tenderness General Back: Negative for CVA tenderness Cervical Spine: Negative for cervical spine tenderness Thoracic Spine / Upper Back: Negative for thoracic spinal tenderness Lumbar Spine / Lower Back: Negative for lumbar spinal tenderness Extremity normal to inspection General Extremety ED: Negative for edema or tenderness General Extremity: Negative for edema Neuro oriented x3, CN's II-XII intact bilaterally and no sensory deficits noted Sensorium / Orientation: alert; Negative for orientation impaired, lethargic or stuporous Motor Exam: strength 5/5 throughout Psych Negative for mental status grossly normal Appearance: Negative for unkempt Attitude: No agitated Mood & Affect: anxious and tearful; Negative for depressed Skin no rashes or lesions noted, no wounds and skin turgor normal General Skin Exam: elasticity normal; Negative for jaundice or pallor Lesions: No lesion noted Rashes: No rashes noted Trauma: Negative for abrasion Wounds: Negative for wounds noted MDM MDM MDM Narrative Medical decision making narrative: 27-year-old very anxious and emotionally upset. Exam is completely unremarkable other than prior chipped tooth its been very chipped. Screening labs to be obtained. She will be given a milligram of IV Ativan to try to help relax her.Labs are unremarkable except for mild hypokalemia. Repeat exam at 3:31 PM patient doing well. Significant other in the room. She will be discharged. She knows not to drive today. Clinically I think is secondary to anxiety. She seen the counseling center for that before. She is a nurse practitioner she sees in [place]. She will follow-up with them. History & Record Review Discussion w/independent historian: Patient Additional record(s) reviewed:: Prior inpatient record, Prior outpatient record, Prior ED visit and Prior labs Lab Data Attestation: I reviewed the patient's lab results. Lab results narrative: CBC normal. White count 9.2. H&H of 13 and 40. Platelets 388. Chemistries shows potassium of 3.3. Gap of 10. Normal BUN of 8 creatinine 0.9. Glucose 156. Labs: Laboratory Results - last 24 hr 02/09/23 14:50 WBC 9.2 RBC 4.52 Hgb 13.0 Hct 40.9 MCV 90.5 MCH 28.8 MCHC 31.8 L RDW Std Deviation 44.6 H RDW Coeff of Amelia 13.4 Plt Count 388 MPV 9.4 Immature Gran % (Auto) 0.300 Neut % (Auto) 59.0 Lymph % (Auto) 33.0 Webb % (Auto) 6.8 Eos % (Auto) 0.4 Baso % (Auto) 0.5 Absolute Neuts (auto) 5.4 Absolute Lymphs (auto) 3.03 Nucleated RBC % 0 Sodium 137 Potassium 3.3 L Chloride 107 Carbon Dioxide 20.0 L Anion Gap 10 BUN 8 Creatinine 0.97 Estim Creat Clear Calc 89.44 Est GFR (MDRD) Af Amer 89 Est GFR (MDRD) Non-Af 74 BUN/Creatinine Ratio 8.2 L Glucose 156 H Calcium 8.6 Discharge Plan Triage Chief Complaint: Seizure ED Provider: Dereck Green Dx/Rx/DC Orders Clinical Impression: Anxiety, Acute hypokalemia Instructions: Anxiety Disorders Tx Prescriptions: No Action hydrocodone-acetaminophen [hydrocodone-acetaminophen] 1 TABLET tablet 1 tab PO Q6H PRN PRN (Reason: Pain) 3 Days Qty: 12 0RF Primary Care Provider: Care Physician,No Primary Referrals: Care Physician,No Primary [Primary Care Provider] - Activity Restrictions/Additional Instructions: Follow-up with your primary care provider or the counseling center for your anxiety they may be able get you on medications. Make sure you are drinking plenty of fluids and eating a good diet your potassium is just slightly below normal. Do not drive today due to the Ativan we gave you. Disposition Disposition: Home, Self Care
[2023-02-09 15:08] LABS: Absolute Lymphocyte Count 3.03 X10^3/uL (0.83-4.51); Absolute Neutrophil Count 5.4 X10^3/uL (2.0-7.7); Basophil# 0.05 X10^3/uL; Basophil% 0.5 % (0-1); Eosinophil# 0.04 X10^3/uL; Eosinophils% 0.4 % (0-5); Hematocrit 40.9 % (37-47); Lymphocyte # 3.03 X10^3/ul (0.83-4.51); Mean Corp Hgb Conc 31.8 g/dL (32-36); Mean Corpuscular Hgb 28.8 pg (27.0-32.0); Mean Corpuscular Volume 90.5 fL (81-99); Mean Platelet Vol. 9.4 fl (6.2-12.0); Monocyte# 0.62 X10^3/uL; Monocyte% 6.8 % (0-10); NRBC Flagged by Analyzer 0 % (0-5); Neutrophil # 5.41 X10^3/uL (2.7-7.7); Platelet Count 388 K/mm3 (150-450); RBC Distribution Width CV 13.4 % (11.6-14.6); RBC Distribution Width SD 44.6 fl (35.1-43.9); Red Blood Count 4.52 M/mm3 (4.2-5.4); White Blood Count 9.2 K/mm3 (4.4-11.0)
[2023-02-09] MEDS: LORazepam 2 MG/ML Syringe 1 MG IV (15:08)
[2023-02-09 15:22] LABS: Anion Gap 10 (5-15); BUN 8 mg/dL (7-18); BUN/Creat Ratio 8.2 RATIO (10-20); Calcium,Total 8.6 mg/dL (8.5-10.1); Chloride 107 mmol/L (98-107); Creatinine, Serum 0.97 mg/dL (0.55-1.02); EST Glomerular Filtration Rate 74 mL/min (>60); Est Glom Filt Rate - Afr Amer 89 mL/min (>60); Estimated Creatinine Clearance 89.44 ml/min; Glucose 156 mg/dL (74-106); Potassium 3.3 mmol/L (3.5-5.1); Sodium Level 137 mmol/L (136-145)
== END 2023-02-09 15:50 | disposition home or self-care (01) ==
LOC: ED 15:47
PROVIDERS: Emergency Provider Emergency Medicine; Visit Provider Emergency Medicine
DX: F41.9 Anxiety disorder, unspecified (principal); E87.6 Hypokalemia; F17.210 Nicotine dependence, cigarettes, uncomplicated
CPT/HCPCS: 80048; 85025; 96374; 99284; A4216

== ENCOUNTER 2023-03-29 10:03 | Emergency (ER) | payer OTHER, SELFPAY ==
[2023-03-29 10:04] VITALS: BP 103/65; PULSE 90; RESP 22; TEMP 36.6; O2SAT 99; BMI 24.8
[2023-03-29 10:09] VITALS: BP 103/65; PULSE 89; RESP 15
--- NOTE | 2023-03-29 10:13 | EDS_ITS ---
HPI History of Present Illness Chief Complaint: Seizure Informant: patient and EMS Onset/Context/Timing Onset: Today Current Severity: Gone Maximum Severity: Moderate Narrative Narrative: 27-year-old female with past medical history of hypothyroidism. History of prior seizures but no neurologist evaluation or EEG. She is currently not on any seizure medications. These began within the last several months. Today at work she reportedly had a tonic-clonic seizure that lasted 7 to 10 minutes. When squad arrived she was postictal but no longer seizing. She has reportedly had seizures before. She denies any recent illness or complaints. She had a recent CAT scan of her brain at another local hospital that was reportedly unremarkable. Prior similar symptoms: Yes Recent Illness/Hospitalization: No PFSH PFSH Home Medications hydrocodone-acetaminophen 5-325mg 5mg-325mg 1 tab PO Q6H PRN PRN Pain 3 days #12 TABLETS 10/07/21 [Rx Last Taken Unknown] CONTROL 03/29/23 [History Last Taken Unknown] Allergy/AdvReac Type Severity Reaction Status Date / Time No Known Allergies Allergy Verified 03/29/23 10:09 Surgical History no surgical history no surgical history Social History Smoking Status: Current every day smoker tobacco type: cigarettes substance use type: does not use ROS ROS ED ROS Narrative Denies recent illness. Review of Systems ROS Unobtainable: Denies due to encephalopathy Constitutional Constitutional ED: Denies chills or fever(s) Eyes Eyes: Denies blurry vision ENT ENT ED: Denies ear pain Cardiovascular Cardiovascular: Denies chest pain Respiratory/Chest Respiratory/Chest: Denies cough Gastrointestinal Gastrointestinal: Denies abdominal pain Genitourinary Genitourinary ED: Denies dysuria Musculoskeletal Musculoskeletal: Denies arthralgias Integumentary Denies abscess Neurologic Neurologic: Denies paresthesias or weakness Psychiatric Psychiatric: Denies anxiety or depression Endocrine Endocrinology: Denies cold intolerance Hematologic/Lymphatic Hematologic/Lymphatic: Reports none Allergic/Immunologic Allergic/Immunologic ED: Denies mouth swelling, tongue swelling or urticaria EXAM Physical Exam Narrative Exam Narrative: Well-appearing 27-year-old female. Awake alert sitting upright in bed. 2 female friends present. Vital signs are stable and afebrile. Pulse ox 99% on room air no hypoxia. H EENT exam unremarkable. Pupils round reactive light. No trauma to her head or face. Nontender. She has a chipped left front tooth but that is old. There is no bite sheppard to her tongue. Neck nontender. Full range of motion. No meningismus. No lymphadenopathy. Lungs clear to auscultation bilaterally. Heart regular rhythm rate about 85 no murmur. Chest wall and ribs nontender. Abdomen soft nontender. Back nontender. Moving all 4 extremities. 5 and 5 human resources trainer strength. Dorsi plantarflexion intact. Nontender. No deformity. Normal range of motion. Neurologic exam normal. Awake and alert. NIH is 0. Const Vital Signs: 03/29/23 10:04 03/29/23 10:09 Temperature 97.9 F Temperature Source Temporal Pulse Rate 90 89 Respiratory Rate 22 H 15 Blood Pressure 103/65 103/65 Blood Pressure Mean 77 77 Pulse Ox 99 Oxygen Delivery Method Room Air Room Air Positive well nourished and well developed; Negative for obese, cachectic, contractures or unkempt General Appearance ED: well developed and NAD; Negative for unkempt, cachectic, contractures, cyanotic, diaphoretic or pallor Nutritional Appearance: Negative for cachectic or obese HEENT Reports moist mucous membranes; Denies dry mucous membranes Negative for trauma or tenderness Mouth ED: No dry mucous membranes Mouth: No dry mucous membranes Eyes PERRL and EOMs intact bilaterally General Eye ED: Negative for pale conjunctiva or scleral icterus Neck no lymphadenopathy, supple and no JVD General: Negative for tenderness Lymph Lymphatic: Negative for other Chest Wall inspection of chest normal and palpation of chest normal Chest: Negative for other Resp normal respiratory effort and clear to auscultation bilaterally Effort and Inspection: Negative for retractions Auscultation: Negative for rales, rhonchi or wheezes Cardio regular rate, regular rhythm, S1 normal heart sound, S2 normal heart sound and no murmurs Palpation: Negative for palpable S3 Rate: Negative for bradycardia Rhythm: Negative for abnormal rhythm GI normal to inspection, nondistended, normoactive bowel sounds, non-tender, non- distended and no masses Inspection: Negative for abdominal distention Auscultation: normoactive bowel sounds Palpation: soft; Negative for tender or guarding Back/Spine no CVA tenderness General Back: Negative for CVA tenderness Cervical Spine: Negative for cervical spine tenderness Thoracic Spine / Upper Back: Negative for thoracic spinal tenderness Lumbar Spine / Lower Back: Negative for lumbar spinal tenderness Extremity normal to inspection General Extremety ED: Negative for edema or tenderness General Extremity: Negative for edema Neuro oriented x3 and CN's II-XII intact bilaterally Sensorium / Orientation: alert; Negative for orientation impaired, lethargic or stuporous Sensory Exam: No sensory level loss detected Motor Exam: strength 5/5 throughout Psych mental status grossly normal Appearance: Negative for unkempt Attitude: No agitated Mood & Affect: Negative for depressed, anxious or tearful Skin no rashes or lesions noted, no wounds and skin turgor normal General Skin Exam: elasticity normal; Negative for jaundice or pallor Lesions: No lesion noted Rashes: No rashes noted Trauma: Negative for abrasion Wounds: Negative for wounds noted MDM MDM MDM Narrative Medical decision making narrative: 27-year-old female with prior seizures. Currently on no medications. Reported seizure today. Normal exam. Prior negative CAT scan imaging of her brain. Screening labs will be obtained. History & Record Review Discussion w/independent historian: Patient Additional record(s) reviewed:: Prior inpatient record, Prior outpatient record, Prior ED visit and Prior labs Lab Data Attestation: I reviewed the patient's lab results. Lab results narrative: CBC is unremarkable white count of 7 H&H 11.8 and 38. Platelets 265. BMP shows gap of 11. Normal BUN 9 creatinine 0.5. Glucose 114. Labs: Laboratory Results - last 24 hr 03/29/23 10:10 WBC 7.0 RBC 4.24 Hgb 11.8 L Hct 38.1 MCV 89.9 MCH 27.8 MCHC 31.0 L RDW Std Deviation 41.2 RDW Coeff of Amelia 12.5 Plt Count 265 MPV 9.3 Immature Gran % (Auto) 0.300 Neut % (Auto) 67.4 Lymph % (Auto) 23.6 [place] % (Auto) 6.8 Eos % (Auto) 1.0 Baso % (Auto) 0.9 Absolute Neuts (auto) 4.7 Absolute Lymphs (auto) 1.64 Nucleated RBC % 0 Sodium 137 Potassium 3.8 Chloride 105 Carbon Dioxide 21.0 Anion Gap 11 BUN 9 Creatinine 0.85 Estim Creat Clear Calc 102.06 Est GFR (MDRD) Af Amer 105 Est GFR (MDRD) Non-Af 87 BUN/Creatinine Ratio 10.6 Glucose 114 H Calcium 8.9 Rhythm Strip Rhythm Strip: Sinus Rhythm Rate: 82 Ectopy: None EKG Initial EKG: Attestation: I personally reviewed and interpreted this EKG as follows: Interpretation: Sinus Rhythm and No Acute Injury Pattern Comments: Normal sinus rhythm rate 82 no acute signs of IA or ischemia. No dysrhythmia. Discharge Plan Triage Chief Complaint: Seizure ED Provider: Dereck Green Dx/Rx/DC Orders Prescriptions: No Action hydrocodone-acetaminophen [hydrocodone-acetaminophen] 1 TABLET tablet 1 tab PO Q6H PRN PRN (Reason: Pain) 3 Days Qty: 12 0RF Hold Instructions: Pt has been DC'd CONTROL Primary Care Provider: Care Physician,No Primary Referrals: Care Physician,No Primary [Primary Care Provider] -
--- NOTE | 2023-03-29 10:14 | EKG12_ITS ---
Test Reason : SEIZURE Blood Pressure : / mmHG Vent. Rate : 082 BPM Atrial Rate : 082 BPM P-R Int : 138 ms QRS Dur : 076 ms QT Int : 388 ms P-R-T Axes : -13 046 025 degrees QTc Int : 453 ms Normal sinus rhythm Normal ECG Confirmed by MARCIANO VELEZ, KAMARI ([id number]), photograph editor LEO GREEN ([id number]) on 04/04/2023 10:12:44 AM Referred By: Confirmed By:ADEEL TARIQ MD
[2023-03-29 10:21] LABS: Absolute Lymphocyte Count 1.64 X10^3/uL (0.83-4.51); Absolute Neutrophil Count 4.7 X10^3/uL (2.0-7.7); Basophil# 0.06 X10^3/uL; Basophil% 0.9 % (0-1); Eosinophil# 0.07 X10^3/uL; Hematocrit 38.1 % (37-47); Hemoglobin 11.8 g/dL (12.0-15.0); Lymphocyte # 1.64 X10^3/ul (0.83-4.51); Lymphocyte % 23.6 % (19-41); Mean Corpuscular Hgb 27.8 pg (27.0-32.0); Mean Corpuscular Volume 89.9 fL (81-99); Mean Platelet Vol. 9.3 fl (6.2-12.0); Monocyte# 0.47 X10^3/uL; Monocyte% 6.8 % (0-10); NRBC Flagged by Analyzer 0 % (0-5); Neutrophil # 4.69 X10^3/uL (2.7-7.7); Neutrophil % 67.4 % (47-70); Platelet Count 265 K/mm3 (150-450); RBC Distribution Width CV 12.5 % (11.6-14.6); RBC Distribution Width SD 41.2 fl (35.1-43.9); Red Blood Count 4.24 M/mm3 (4.2-5.4)
[2023-03-29] MEDS: Acetaminophen 500 MG Tablet 1000 MG PO (10:35)
[2023-03-29 10:44] LABS: Anion Gap 11 (5-15); BUN 9 mg/dL (7-18); BUN/Creat Ratio 10.6 RATIO (10-20); Calcium,Total 8.9 mg/dL (8.5-10.1); Chloride 105 mmol/L (98-107); Creatinine, Serum 0.85 mg/dL (0.55-1.02); EST Glomerular Filtration Rate 87 mL/min (>60); Est Glom Filt Rate - Afr Amer 105 mL/min (>60); Estimated Creatinine Clearance 102.06 ml/min; Glucose 114 mg/dL (74-106); Potassium 3.8 mmol/L (3.5-5.1); Sodium Level 137 mmol/L (136-145)
[2023-03-29 11:07] VITALS: BP 106/58; PULSE 82; RESP 18; O2SAT 100
--- NOTE | 2023-03-29 11:11 | ED.RN ---
PT AMBULATED TO BATHROOM WITHOUT ASSISTANCE. STATES SHE FEELS NORMAL. THIS RN GAVE DISCHARGE PAPERWORK AND INSTRUCTIONS TO PT AND PT FAMILY MEMBER. PT EDUCATED NOT TO DRIVE UNTIL CLEARED BY NEUROLOGIST. PT AND PT FAMILY MEMBER VERBALIZE UNDERSTANDING PRIOR TO AMBULATING OUT OF ER.
== END 2023-03-29 11:13 | disposition home or self-care (01) ==
PROVIDERS: Emergency Provider Emergency Medicine; Visit Provider Emergency Medicine
DX: R56.9 Unspecified convulsions (principal); F17.210 Nicotine dependence, cigarettes, uncomplicated
CPT/HCPCS: 80048; 85025; 93005; 99285; A4216

== ENCOUNTER 2023-11-19 09:51 | Emergency (ER) | payer SELFPAY ==
[2023-11-19 09:52] VITALS: BP 129/99; PULSE 66; RESP 16; TEMP 36.6; O2SAT 99; BMI 23.2
--- NOTE | 2023-11-19 10:30 | EX.ED.VIS.PS ---
HPI HPI - Psych History of Present Illness Chief Complaint: Mental Health Narrative Narrative: Patient presents at urging of police for mental health evaluation. Patient does have a reported history of seizures that started last January. She has been on and off seizure medications stating that she was having problems with them making her have suicidal thoughts. She left her previous job on October 21 and had done well without seizures until November 07. She woke up on the floor in the bathroom at [facility] after having had a seizure. She started taking her medication (oxcarbazepine) the following day. She does admit that she is not consistent with taking her medication. Today she was in an argument with family members at home and police were called. She reportedly made a statement that internal sleep sounds like a good idea at times. This prompted them to encourage her to come in for psychiatric evaluation. Patient denies being actively suicidal or homicidal. She denies hallucinations. [facility] Medical History (Updated 11/19/23 @ 13:[address] Mckenzie Singh MD) Hypothyroidism Seizures Home Medications ?Medication ?Instructions ?Recorded ?Last Taken ?Type CONTROL 1 tab PO DAILY 03/29/23 Unknown History oxcarbazepine 300 mg tablet 300 mg PO BID 11/19/23 Unknown History Allergy/AdvReac Type Severity Reaction Status Date / Time levetiracetam (From [facility]) AdvReac Severe suicidal Verified 11/19/23 11:49 Social History Smoking Status: Current every day smoker tobacco type: e-cigarettes substance use type: does not use ROS ROS ED Constitutional Constitutional ED: Denies chills or fever(s) Eyes Eyes: Denies change in vision or discharge from eye(s) ENT ENT ED: Denies discharge from eye(s), rhinorrhea or sore throat Cardiovascular Cardiovascular: Denies chest pain or palpitations Respiratory/Chest Respiratory/Chest: Denies cough or dyspnea Gastrointestinal Gastrointestinal: Denies abdominal pain, nausea or vomiting Musculoskeletal Musculoskeletal: Denies back pain or extremity pain Integumentary Denies Abrasions or rash Neurologic Neurologic: Denies headache(s) or weakness Psychiatric Psychiatric: Reports anxiety; Denies depression Endocrine Endocrinology: Denies polydipsia or polyuria Allergic/Immunologic Allergic/Immunologic ED: Denies lip swelling or urticaria EXAM Physical Exam Const Vital Signs: 11/19/23 09:52 Temperature 97.8 F Temperature Source Temporal Pulse Rate 66 Respiratory Rate 16 Blood Pressure 129/99 H Blood Pressure Mean 109 Pulse Ox 99 Oxygen Delivery Method Room Air Positive well nourished and well developed General Appearance ED: well developed HEENT Reports moist mucous membranes Eyes EOMs intact bilaterally Resp normal respiratory effort and clear to auscultation bilaterally Cardio Rate: regular rate Rhythm: regular rhythm GI non-tender Palpation: soft Extremity normal to inspection Neuro oriented x3 and no sensory deficits noted Sensorium / Orientation: alert Motor Exam: strength 5/5 throughout Psych mental status grossly normal Appearance: appropriate and well kempt Attitude: engaged Speech: normal speech Mood & Affect: anxious Thought Content: No suicidality and No homicidality Memory / Cognition: memory grossly intact MDM MDM MDM Narrative Medical decision making narrative: Given the patient's history of seizures and hypothyroidism I will check electrolytes along with CBC, TSH, and tox screen. Plan will be to have crisis evaluate the patient at bedside but I do not feel that she is going to require transfer for psychiatric treatment. History & Record Review Discussion w/independent historian: Patient Lab Data Attestation: I reviewed the patient's lab results. Labs: Laboratory Results - last 24 hr 11/19/23 11/19/23 10:10 11:10 WBC 5.7 RBC 4.40 Hgb 12.8 Hct 39.7 MCV 90.2 MCH 29.1 MCHC 32.2 RDW Std Deviation 46.6 H RDW Coeff of [place] 14.0 Plt Count 260 MPV 9.4 Immature Gran % (Auto) 0.200 Neut % (Auto) 62.1 Lymph % (Auto) 26.4 [place] % (Auto) 8.6 Eos % (Auto) 1.8 Baso % (Auto) 0.9 Absolute Neuts (auto) 3.6 Absolute Lymphs (auto) 1.51 Nucleated RBC % 0 Sodium 138 Potassium 4.3 Chloride 105 Carbon Dioxide 29.0 Anion Gap 4 L BUN 11 Creatinine 0.72 Estim Creat Clear Calc 119.44 Est GFR (MDRD) Af Amer 125 Est GFR (MDRD) Non-Af 103 BUN/Creatinine Ratio 15.2 Glucose 90 Calcium 9.0 TSH 0.54 Urine Test Negative Urine Opiates Screen NEGATIVE Urine Methadone Screen NEGATIVE Ur Barbiturates Screen NEGATIVE Ur Phencyclidine Scrn NEGATIVE Ur Amphetamines Screen NEGATIVE MDMA (Ecstasy) Screen NEGATIVE U Benzodiazepines Scrn NEGATIVE Urine Cocaine Screen NEGATIVE U Cannabinoids Screen POSITIVE H Ur Drug Screen Comment Ethyl Alcohol 3.0 Treatment and Re-Evaluation Narrative: CBC and chemistry studies are unremarkable. test is negative. EtOH is normal. Talk screen is positive only for cannabinoids. There was an extensive delay in waiting for the patient's alcohol level to return. Plan was to have crisis come see the patient. At this time she states that she is just anxious and wants to leave. She denies thoughts of wanting to hurt herself or any plan. I will give her a dose of Ativan at this time and discharge her to home with follow-up information for the counseling center. Discharge Plan Triage Chief Complaint: Mental Health ED Provider: Mckenzie Singh Dx/Rx/DC Orders Clinical Impression: Anxiety Instructions: ED Anxiety Reaction Prescriptions: No Action CONTROL 1 tab PO DAILY oxcarbazepine 300 mg tablet 300 mg PO BID Primary Care Provider: Sohan Moody [employer] Referrals: Counseling,Center [Group of Physicians] - As soon as possible Care Physician,No Primary [Non-Staff] - Print Language: Azerbaijani Disposition Disposition: Home, Self Care
[2023-11-19 11:43] LABS: Absolute Lymphocyte Count 1.51 X10^3/uL (0.83-4.51); Absolute Neutrophil Count 3.6 X10^3/uL (2.0-7.7); Basophil# 0.05 X10^3/uL; Basophil% 0.9 % (0-1); Eosinophils% 1.8 % (0-5); Hematocrit 39.7 % (37-47); Hemoglobin 12.8 g/dL (12.0-15.0); Lymphocyte # 1.51 X10^3/ul (0.83-4.51); Lymphocyte % 26.4 % (19-41); Mean Corp Hgb Conc 32.2 g/dL (32-36); Mean Corpuscular Hgb 29.1 pg (27.0-32.0); Mean Corpuscular Volume 90.2 fL (81-99); Mean Platelet Vol. 9.4 fl (6.2-12.0); Monocyte# 0.49 X10^3/uL; Monocyte% 8.6 % (0-10); NRBC Flagged by Analyzer 0 % (0-5); Neutrophil # 3.55 X10^3/uL (2.7-7.7); Neutrophil % 62.1 % (47-70); Platelet Count 260 K/mm3 (150-450); RBC Distribution Width SD 46.6 fl (35.1-43.9); White Blood Count 5.7 K/mm3 (4.4-11.0)
[2023-11-19 11:46] LABS: Internal QC Validated? YES +Cl - CLEAR BKGD; Pregnancy, Urine Negative Negative
[2023-11-19 12:08] LABS: Amphetamine Urine VISTA NEGATIVE (<1000 ng/mL); Barbiturate Urine VISTA NEGATIVE (< 200 ng/mL); Benzodiazepine Urine VISTA NEGATIVE (< 200 ng/mL); Cocaine Urine VISTA NEGATIVE (< 300 ng/mL); Ecstacy Urine VISTA NEGATIVE (< 500 ng/mL); Methadone Urine VISTA NEGATIVE (< 300 ng/mL); PCP Urine VISTA NEGATIVE (< 25 ng/mL); THC Urine VISTA POSITIVE (< 50 ng/mL); Vista UDS pH Range 7
[2023-11-19 12:16] LABS: Anion Gap 4 (5-15); BUN 11 mg/dL (7-18); BUN/Creat Ratio 15.2 RATIO (10-20); Chloride 105 mmol/L (98-107); Creatinine, Serum 0.72 mg/dL (0.55-1.02); EST Glomerular Filtration Rate 103 mL/min (>60); Est Glom Filt Rate - Afr Amer 125 mL/min (>60); Estimated Creatinine Clearance 119.44 ml/min; Glucose 90 mg/dL (74-106); Potassium 4.3 mmol/L (3.5-5.1); Sodium Level 138 mmol/L (136-145); Thyroid Stim Hormone (TSH) 0.54 uIU/mL (0.358-3.74)
[2023-11-19] MEDS: LORazepam 1 MG Tablet PO (13:16)
[2023-11-19 13:17] VITALS: BP 129/99; PULSE 66; RESP 16; TEMP 36.6; O2SAT 99
== END 2023-11-19 13:19 | disposition home or self-care (01) ==
PROVIDERS: Emergency Provider Emergency Medicine; PCP Nurse Practitioner Primary Care; Visit Provider Emergency Medicine
DX: F41.9 Anxiety disorder, unspecified (principal); R56.9 Unspecified convulsions; R45.851 Suicidal ideations; E03.9 Hypothyroidism, unspecified; Z79.3 Long term (current) use of hormonal contraceptives; F17.290 Nicotine dependence, other tobacco product, uncomplicated
CPT/HCPCS: 80048; 80307; 80320; 81025; 84443; 85025; 99282; G0480